=== PATIENT | male | born 1960 | race Hispanic/Latino ===

== ENCOUNTER 2018-10-31 17:32 | Inpatient (IN) | payer SELFPAY ==
[2018-10-30 21:00] VITALS: BP 131/85
[~2018-10-31] VITALS: Ht 167.6 cm; Wt 95.3 kg
[~2018-10-31 17:32] MED LIST: PERFLUTREN PROTEIN-A MICROSPHR 0.22 MG/ML VIAL IV ONE
[2018-10-31] MEDS ORDERED: HEPARIN SODIUM 1000UNIT/ML 10ML VIAL ONE (17:44)
[2018-10-31] MEDS ORDERED: IOHEXOL-350 50ML VIAL IV ONE (17:44)
[2018-10-31] MEDS ORDERED: IOHEXOL 350 MG/ML 100ML INFUS..BTL IV ONE (17:45)
[2018-10-31] MEDS ORDERED: ATROPINE SULFATE 0.1 MG/ML 10 ML SYG IVP ONE (17:49)
[2018-10-31] MEDS ORDERED: DOPAMINE HCL 400 MG/D5%-WATER 0 ML IV ONE (17:49)
[2018-10-31] MEDS ORDERED: METOPROLOL TARTRATE 1 MG/ML 5ML VIAL IV ONE ×2 (18:23→18:30)
[2018-10-31] MEDS ORDERED: ONDANSETRON HCL 4 MG/2 ML VIAL IVP SCH (19:00)
[2018-10-31] MEDS ORDERED: NITROGLYCERIN 50 MG/D5% WATER 1 BOT IV PRN (19:00)
[2018-10-31] MEDS ORDERED: TEMAZEPAM 30 MG CAP PO PRN (19:00)
[2018-10-31] MEDS ORDERED: ACETAMINOPHEN-CODEINE 300/30MG TAB PO PRN ×2 (19:00)
[2018-10-31] MEDS ORDERED: ONDANSETRON HCL 4 MG/2 ML VIAL IVP PRN (19:00)
[2018-10-31 20:00] VITALS: BP 169/109
[2018-10-31] MEDS ORDERED: NITROGLYCERIN 0.4 MG SL TAB SL PRN (20:45)
[2018-10-31] MEDS ORDERED: ACETAMINOPHEN 325 MG TAB PO PRN ×2 (20:45)
[2018-10-31 21:00] VITALS: BP 131/65
[2018-10-31] MEDS ORDERED: METOPROLOL TARTRATE 25 MG TAB PO SCH (21:00)
[2018-10-31 22:00] VITALS: BP 96/53
[2018-10-31] MEDS: SODIUM CHLORIDE 0.9% 1000ML 1,000 ML IV SCH (22:35)
[2018-10-31 23:00] VITALS: BP 120/75
[2018-10-31 23:30] VITALS: BP 117/66
[2018-11-01] VITALS (39 sets, daily range): BP systolic 95–187; BP diastolic 47–122
[2018-11-01 03:42] LABS: HEMATOCRIT 42.7 % (42-54); MEAN CORPUSCULAR HEMOGLOBIN 30.6 pg (27.0-33.0); MEAN CORPUSCULAR HGB CONC 34.2 g/dL (32.0-36.0); MEAN CORPUSCULAR VOLUME 89.4 fL (79-99); PLATELET COUNT (AUTO) 279 K/uL (130-400); RED BLOOD CELL COUNT(AUTO) 4.77 MIL/uL (4.50-6.20); WHITE BLOOD COUNT (AUTO) 12.5 K/uL (4.8-10.8)
[2018-11-01 03:49] LABS: HEMOGLOBIN A1C 5.8 % (4.0-6.0)
[2018-11-01 04:19] LABS: CREATININE 1.6 mg/dL (0.5-1.5); POTASSIUM 3.8 mmol/L (3.5-5.1)
--- NOTE | 2018-11-01 04:31 | NUR ---
Called [facility] NP to notify about elevated troponin and CK, 1049 and 18 respectively. No new orders were received at this time. Patient is awake, alert, oriented and hemodynamically stable. Will Continue to monitor patient closely. Addendum: 11/01/18 at 0438 by Gigi Hdz RN RN correction-troponin 18.2 and CK 1049
[2018-11-01 05:25] LABS: APPEARANCE,URINE CLEAR (CLEAR); BILIRUBIN,URINE NEGATIVE (NEGATIVE); COLOR,URINE YELLOW (YELLOW); GLUCOSE, URINE (UA) NEGATIVE (NEGATIVE); KETONES,URINE NEGATIVE (NEGATIVE); LEUKOCYTE ESTERASE ,URINE NEGATIVE (NEGATIVE); NITRATE,URINE NEGATIVE (NEGATIVE); OCCULT BLOOD,URINE SMALL (NEGATIVE); PROTEIN,URINE NEGATIVE (NEGATIVE); UROBILINOGEN,URINE 0.2 mg/dL (0.2-1.0)
[2018-11-01 05:33] LABS: AMPHET/METH SCREEN,URINE NEGATIVE (NEGATIVE); BARBITURATE SCREEN, URINE NEGATIVE (NEGATIVE); BENZODIAZEPINES SCREEN,URINE NEGATIVE (NEGATIVE); CANNABINOID SCREEN,URINE NEGATIVE (NEGATIVE); COCAINE SCREEN,URINE NEGATIVE (NEGATIVE); OPIATE SCREEN,URINE POSITIVE (NEGATIVE); PHENCYCLIDINE SCREEN,URINE NEGATIVE (NEGATIVE)
[2018-11-01 05:39] LABS: BACTERIA,URINE None Seen /HPF (None Seen); MUCUS,URINE Rare LPF (None Seen); RBC,URINE 0-1 /HPF (0-1); SQUAMOUS EPITHELIAL CELL,UR Rare /HPF (0-2); WBC,URINE None Seen /HPF (0-1)
[2018-11-01] MEDS: SODIUM CHLORIDE 0.9% 1000ML 1,000 ML IV SCH (06:43)
[2018-11-01] MEDS ORDERED: METOPROLOL TARTRATE 25 MG TAB PO SCH (09:00)
[2018-11-01] MEDS: ASPIRIN 81MG TAB.CHEW PO SCH (09:11)
[2018-11-01] MEDS: CLOPIDOGREL BISULFATE 75 MG TAB PO SCH (09:11)
[2018-11-01] MEDS: ATORVASTATIN CALCIUM 40 MG TABLET PO SCH (09:11)
[2018-11-01] MEDS: PANTOPRAZOLE SODIUM 40 MG TABLET.DR PO SCH (09:11)
[2018-11-01] MEDS ORDERED: CLONIDINE HCL 0.1 MG TABLET PO PRN (11:30)
[2018-11-01] MEDS: LISINOPRIL 10 MG TABLET PO SCH (11:58)
[2018-11-01 13:04] LABS: TROPONIN I 25.87 ng/mL (0.00-0.06)
--- NOTE | 2018-11-01 16:38 | NUR ---
[facility].
--- NOTE | 2018-11-01 17:11 | NUR ---
DC PLAN VISITED WITH PATIENT. PATIENT SAYS SOON TO BE X WILL HELP ON DISCHARGE DID NOT WANT TO GIVE PHONE. SAYS WILL BE LIVING AT [address] [place] [address]. PATIENT HAS A CPAP MACHINE THAT IS NOT WORKING. HE GOES TO [place] FOR MD AND MEDICATIONS. WE WENT OVER THE DIFFERENT OPTIONS. DECIDED BEST THING IS TO TAKE MACHINE TO [place] AND SEE IF THEY CAN FIX OR EXCHANGE IT. LET MD KNOW. FEELS SAFE TO RETURN HOME. Addendum: 11/01/18 at 1724 by NEAL VAZQUEZ RN CM Amended: Links added.
[2018-11-01] MEDS: METOPROLOL TARTRATE 50 MG TAB PO SCH (21:20)
[2018-11-02 00:08] VITALS: BP 118/77
[2018-11-02] MEDS: LISINOPRIL 10 MG TABLET PO SCH ×2 (00:17→08:34)
[2018-11-02 03:43] VITALS: BP 122/71
[2018-11-02 03:55] LABS: HEMATOCRIT 40.7 % (42-54); MEAN CORPUSCULAR HEMOGLOBIN 30.7 pg (27.0-33.0); MEAN CORPUSCULAR HGB CONC 33.9 g/dL (32.0-36.0); MEAN CORPUSCULAR VOLUME 90.5 fL (79-99); PLATELET COUNT (AUTO) 234 K/uL (130-400); RED CELL DISTRIBUTION WIDTH 14.4 % (11.0-15.5); WHITE BLOOD COUNT (AUTO) 10.6 K/uL (4.8-10.8)
[2018-11-02 04:31] LABS: CREATININE 1.2 mg/dL (0.5-1.5); POTASSIUM 3.5 mmol/L (3.5-5.1)
[2018-11-02 04:40] LABS: TROPONIN I 19.02 ng/mL (0.00-0.06)
[2018-11-02 07:00] VITALS: BP 126/66
[2018-11-02] MEDS ORDERED: ISOSORBIDE MONO 30MG TAB SR PO SCH (08:30)
[2018-11-02] MEDS: PANTOPRAZOLE SODIUM 40 MG TABLET.DR PO SCH (08:34)
[2018-11-02] MEDS: CLOPIDOGREL BISULFATE 75 MG TAB PO SCH (08:34)
[2018-11-02] MEDS: METOPROLOL TARTRATE 50 MG TAB PO SCH (08:34)
[2018-11-02] MEDS: ATORVASTATIN CALCIUM 40 MG TABLET PO SCH (08:34)
[2018-11-02] MEDS: ASPIRIN 81MG TAB.CHEW PO SCH (08:34)
[2018-11-02 11:00] VITALS: BP 134/81
--- NOTE | 2018-11-02 15:59 | NUR ---
NEW PRESCRIPTIONS CALLED IN TO PATIENT'S PREFERRED PHARMACY, [facility]. SPOKE WITH
== END 2018-11-02 17:15 | disposition home or self-care (01) | DRG 281 ==
LOC: 2CH 18:08 → 2DH 11-01 16:49
PROVIDERS: ADMIT Internal Medicine; ATTEND Internal Medicine
PROC: 4A023N7 Measurement of Cardiac Sampling and Pressure, Left Heart, Percutaneous Approach (ICD-10-PCS; principal; 2018-10-31)
PROC: B2111ZZ Fluoroscopy of Multiple Coronary Arteries using Low Osmolar Contrast (ICD-10-PCS; 2018-10-31)
PROC: B2151ZZ Fluoroscopy of Left Heart using Low Osmolar Contrast (ICD-10-PCS; 2018-10-31)
DX: I21.4 Non-ST elevation (NSTEMI) myocardial infarction (principal); K57.92 Diverticulitis of intestine, part unspecified, without perforation or abscess without bleeding; N17.9 Acute kidney failure, unspecified; I12.9 Hypertensive chronic kidney disease with stage 1 through stage 4 chronic kidney disease, or unspecified chronic kidney disease; E66.9 Obesity, unspecified; E11.22 Type 2 diabetes mellitus with diabetic chronic kidney disease; E78.00 Pure hypercholesterolemia, unspecified; E78.5 Hyperlipidemia, unspecified; G47.33 Obstructive sleep apnea (adult) (pediatric); I25.10 Atherosclerotic heart disease of native coronary artery without angina pectoris; N18.3 Chronic kidney disease, stage 3 (moderate); Z86.73 Personal history of transient ischemic attack (TIA), and cerebral infarction without residual deficits; Z83.3 Family history of diabetes mellitus; Z82.49 Family history of ischemic heart disease and other diseases of the circulatory system; Z68.33 Body mass index [BMI] 33.0-33.9, adult
CPT/HCPCS: 36415; 80048; 80061; 80305; 81001; 82550; 83036; 83874; 84484; 85027; 93005; 93306; 93458; 94660; C1760; C1894; G0378; J0461; J1265; J1644; J3490; Q9967